=== PATIENT | male | born 1985 | race Hispanic/Latino ===

== ENCOUNTER 2018-07-17 11:08 | Emergency (ER) | payer OTHER ==
[2018-07-17] MEDS ORDERED: DEXAMETHASONE SOD PHOSPHATE 10MG/ML 1ML VIAL ONE (11:27)
[2018-07-17] MEDS ORDERED: ORPHENADRINE CITRATE 30 MG/ML ML ONE (11:28)
[2018-07-17] MEDS ORDERED: KETOROLAC TROMETHAMINE 60 MG/2 ML VIAL ONE (11:28)
== END 2018-07-17 12:38 | disposition home or self-care (01) ==
LOC: EDH 11:08
DX: S33.5XXA Sprain of ligaments of lumbar spine, initial encounter (principal); F41.9 Anxiety disorder, unspecified; Z90.49 Acquired absence of other specified parts of digestive tract; X58.XXXA Exposure to other specified factors, initial encounter; Y93.89 Activity, other specified; Y92.89 Other specified places as the place of occurrence of the external cause; Y99.8 Other external cause status
CPT/HCPCS: 96372 ×3; 99283; J1100; J1885; J2360

== ENCOUNTER 2024-12-02 13:49 | Emergency (ER) | payer BC ==
[~2024-12-02] VITALS: Ht 188 cm; Wt 105.2 kg
[2024-12-02] MEDS ORDERED: LIDO1ADH82 TP (15:14)
[2024-12-02] MEDS ORDERED: METH-811 PO (15:14)
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
[2024-12-02] MEDS: ORPHENADRINE 60MG/2ML IM ONE (15:26)
[2024-12-02] MEDS: ketOROlac 15MG/ML VIAL (15MG/ML) IM ONE (15:26)
[2024-12-02] MEDS: LIDOCAINE 4% ADH..PATCH TP ONE (15:26)
[2024-12-02 15:30] VITALS: BP 135/86; PULSE 78; RESP 18; TEMP 97.5; O2SAT 95
== END 2024-12-02 15:39 | disposition home or self-care (01) ==
LOC: EDH 13:49
DX: S20.222A Contusion of left back wall of thorax, initial encounter (principal); M62.838 Other muscle spasm; Z90.49 Acquired absence of other specified parts of digestive tract; X58.XXXA Exposure to other specified factors, initial encounter; Y93.89 Activity, other specified; Y92.89 Other specified places as the place of occurrence of the external cause; Y99.8 Other external cause status
CPT/HCPCS: 99284; 96372 ×2; J1885; J2360